=== PATIENT | male | born 1955 | race Two or more races ===

== ENCOUNTER → 2016-12-30 | Outpatient (CLI) | payer OTHER ==
[~2016-12-30] MED LIST: CARI350T14 PO; HYDR-3138 PO; METF500T4 PO
[2016-12-30 14:40] LABS: ASPARTATE AMINO TRANSFERASE 25 U/L (15-37); BLOOD UREA NITROGEN 12 mg/dL (7-18)
== END | disposition home or self-care (01) ==
LOC: STAR 13:14
PROVIDERS: ATTEND Neurological Surgery
DX: Z01.818 Encounter for other preprocedural examination (principal); M50.00 Cervical disc disorder with myelopathy, unspecified cervical region
CPT/HCPCS: 36415; 71020; 80053; 85025; 85610; 85730; 93005

== ENCOUNTER 2017-01-05 06:38 | Inpatient (IN) | payer OTHER ==
[2016-12-30 14:25] VITALS: BP 135/78
[~2017-01-05] VITALS: Ht 172.7 cm; Wt 92.4 kg
[2017-01-05] MEDS ORDERED: LACTATED RINGERS 1,000 ML IV SCH (08:41)
[2017-01-05] MEDS ORDERED: LISI-170 PO (08:44)
[2017-01-05] MEDS ORDERED: LIDOCAINE 1%, 2ML SQ PRN (09:00)
[2017-01-05] MEDS ORDERED: LIDOCAINE 1%, 2ML ONE (09:05)
[2017-01-05] MEDS ORDERED: FENTANYL PF 250 MCG/5ML ONE (10:54)
[2017-01-05] MEDS ORDERED: MIDAZOLAM 1 MG/ML, 2ML ONE (10:55)
[2017-01-05] MEDS ORDERED: ROCURONIUM 10 MG/ML ONE (12:39)
[2017-01-05] MEDS ORDERED: CEFAZOLIN 1,000 MG ONE (12:39)
[2017-01-05] MEDS ORDERED: PROPOFOL 10 MG/ML, 50ML ONE (12:39)
[2017-01-05] MEDS ORDERED: SUCCINYLCHOLINE 20 MG/ML, 10ML ONE (12:39)
[2017-01-05] MEDS ORDERED: PROPOFOL 10 MG/ML, 20ML ONE (12:39)
[2017-01-05] MEDS ORDERED: THROMBIN 20,000 UNIT VIAL TP ONE (13:30)
[2017-01-05] MEDS ORDERED: BACITRACIN 50,000 UNIT ONE (13:30)
[2017-01-05] MEDS ORDERED: BUPIVACAINE/PF-EPI 0.5% 1:200K ONE (13:30)
[2017-01-05] MEDS ORDERED: MEPERIDINE/PF 25MG/0.5ML IVPush PRN (14:00)
[2017-01-05] MEDS ORDERED: ACETAMINOPHEN 325 MG TABLET PO PRN (14:00)
[2017-01-05] MEDS ORDERED: OXYcodone 5 MG/5 ML ORAL.SOL UDC PO PRN (14:00)
[2017-01-05] MEDS ORDERED: LABETALOL 5MG/ML, 20ML IV PRN (14:00)
[2017-01-05] MEDS ORDERED: PROMETHAZINE 25 MG/ML, 1ML IV PRN (14:00)
[2017-01-05] MEDS ORDERED: ONDANSETRON 2MG/ML, 2ML IVPush PRN (14:00)
[2017-01-05] MEDS ORDERED: hydrALAzine 20 MG/ML, 1ML IV PRN (14:00)
[2017-01-05] MEDS ORDERED: METOCLOPRAMIDE 5 MG/ML, 2ML IV PRN (14:00)
[2017-01-05] MEDS ORDERED: FENTANYL PF 100 MCG/2ML ONE ×2 (16:46→17:08)
[2017-01-05] MEDS ORDERED: OXYcodone 5 MG/5 ML ORAL.SOL UDC ONE (16:46)
[2017-01-05] MEDS ORDERED: MEPERIDINE/PF 25MG/0.5ML ONE (16:46)
[2017-01-05] MEDS: FENTANYL PF 100 MCG/2ML IV PRN ×3 (16:48→17:12)
[2017-01-05] MEDS ORDERED: HYDROmorphone 2 MG/ML, 1ML ONE (17:08)
[2017-01-05] MEDS: HYDROmorphone 1 MG/ML, 1ML IV PRN ×2 (17:11→17:23)
[2017-01-05] MEDS ORDERED: DIPHENHYDRAMINE 50 MG/ML, 1ML IM PRN (19:30)
[2017-01-05] MEDS ORDERED: BISACODYL 10 MG SUPP PR PRN (19:30)
[2017-01-05] MEDS ORDERED: PROMETHAZINE 25 MG/ML, 1ML IM PRN (19:30)
[2017-01-05] MEDS ORDERED: HYDROcodone/APAP 5/325 TABLET PO PRN (19:30)
[2017-01-05] MEDS ORDERED: MAGNESIUM HYDROXIDE 8%, 30ML UDC PO PRN (19:30)
[2017-01-05] MEDS ORDERED: ONDANSETRON 2MG/ML, 2ML IV PRN (19:30)
[2017-01-05] MEDS ORDERED: DIPHENHYDRAMINE 50 MG CAPSULE PO PRN (19:30)
[2017-01-05] MEDS ORDERED: METHOCARBAMOL 1,000 MG in DEXTROSE 5% 100 ML IV ONE (20:00)
[2017-01-05 20:19] VITALS: BP 156/95
[2017-01-05] MEDS: HYDROcodone/APAP 10/325 MG TABLET PO PRN (21:03)
[2017-01-05] MEDS: SENNA/DOCUSATE TABLET PO SCH (21:04)
[2017-01-05] MEDS: CALCIUM CARBONATE 500 MG TAB.CHEW PO SCH (21:04)
[2017-01-05] MEDS: NS + 20MEQ KCL 1,000 ML IV SCH (21:05)
[2017-01-05] MEDS: INSULIN REGULAR 100 UNITS/ML, 3ML VIAL SQ-INSULIN SCH (21:30)
[2017-01-05] MEDS: CEFAZOLIN PMX 1GM/50ML 50 ML IVPB SCH (22:44)
[2017-01-06 00:03] VITALS: BP 138/83
[2017-01-06] MEDS: morphine SULFATE 10 MG/ML, 1ML IV PRN ×3 (00:03→11:09)
[2017-01-06] MEDS: HYDROcodone/APAP 10/325 MG TABLET PO PRN ×3 (02:39→13:49)
[2017-01-06 03:37] VITALS: BP 125/75
[2017-01-06] MEDS: METHOCARBAMOL 750 MG in DEXTROSE 5% 100 ML IV SCH ×2 (05:53→12:12)
[2017-01-06] MEDS: INSULIN REGULAR 100 UNITS/ML, 3ML VIAL SQ-INSULIN SCH ×2 (06:09→11:00)
[2017-01-06] MEDS: CEFAZOLIN PMX 1GM/50ML 50 ML IVPB SCH (06:27)
[2017-01-06 06:54] VITALS: BP 133/81
[2017-01-06] MEDS: NS + 20MEQ KCL 1,000 ML IV SCH (07:33)
[2017-01-06] MEDS ORDERED: DEXAMETHASONE 4 MG/ML, 1ML IV ONE (08:00)
[2017-01-06] MEDS: SENNA/DOCUSATE TABLET PO SCH (08:29)
[2017-01-06] MEDS: CALCIUM CARBONATE 500 MG TAB.CHEW PO SCH (08:29)
[2017-01-06] MEDS ORDERED: LISINOPRIL 20 MG TABLET PO SCH (09:00)
[2017-01-06] MEDS ORDERED: CHOLECALCIFEROL 1,000 UNIT TABLET PO SCH (09:00)
[2017-01-06] MEDS ORDERED: metFORMIN 500 MG TABLET PO SCH (09:00)
[2017-01-06 14:55] VITALS: BP 158/81
[2017-01-06] MEDS ORDERED: CARI350T PO (15:53)
[2017-01-06] MEDS ORDERED: SENN1TAB7 PO (15:55)
[2017-01-06] MEDS ORDERED: CALC400T6 PO (15:56)
[2017-01-06] MEDS ORDERED: CHOL10003 PO (15:57)
[2017-01-06] MEDS ORDERED: METH2TAB PO (15:58)
[2017-01-08] MEDS ORDERED: METHOCARBAMOL 750 MG TABLET PO SCH (08:00)
== END 2017-01-06 16:20 | disposition home or self-care (01) | DRG 472 ==
LOC: ORIP 07:36 → 4NOR 18:25 → DCLOUNGE 01-06 15:41
PROVIDERS: ADMIT Neurological Surgery; ATTEND Neurological Surgery
PROC: 0RB30ZZ Excision of Cervical Vertebral Disc, Open Approach (ICD-10-PCS; 2017-01-05)
PROC: 0RG20A0 Fusion of 2 or more Cervical Vertebral Joints with Interbody Fusion Device, Anterior Approach, Anterior Column, Open Approach (ICD-10-PCS; principal; 2017-01-05 12:30)
DX: M48.02 Spinal stenosis, cervical region (principal); G95.89 Other specified diseases of spinal cord; M43.22 Fusion of spine, cervical region; M40.292 Other kyphosis, cervical region; W19.XXXA Unspecified fall, initial encounter; Y99.0 Civilian activity done for income or pay; Y92.89 Other specified places as the place of occurrence of the external cause; Y93.89 Activity, other specified
CPT/HCPCS: 36415; 72040; 82962; 83036; C1713; J0690; J1100; J1170; J1815; J2175; J2250; J2704; J3010; J3480; J3490; C1778; J0330; J2270; J2800; J7120

== ENCOUNTER 2018-06-19 10:45 | Day surgery (SDC) | payer MEDICAID ==
[~2018-06-19] VITALS: Ht 172.7 cm; Wt 91.9 kg
[~2018-06-19 10:45] MED LIST changes: +BUPIVACAINE/PF 0.5% ONE; +CALC400T6 PO; +CARI350T PO; +CHOL10003 PO; -HYDR-3138 PO; +HYDR-3237 PO; +LISI-170 PO; +METF500T17 PO; -METF500T4 PO; +METH2TAB PO; +SENN1TAB8 PO
[2018-06-19] MEDS ORDERED: LACTATED RINGERS 1,000 ML IV SCH (11:06)
[2018-06-19 11:14] VITALS: BP 164/101
[2018-06-19] MEDS ORDERED: PLEASE ENTER HEIGHT AND WEIGHT MC SCH (11:30)
[2018-06-19 12:05] LABS: ALANINE AMINOTRANSFERASE 32 U/L (12-78); ALBUMIN 4.1 g/dL (3.4-5.0); ANION GAP 9 mmol/L (5-15); CALCIUM 9.2 mg/dL (8.5-10.1); CHLORIDE 111 mmol/L (98-107); CREATININE 0.89 mg/dL (0.7-1.3)
[2018-06-19 12:07] LABS: ALKALINE PHOSPHATASE 77 U/L (45-117); BILIRUBIN,TOTAL 0.4 mg/dL (0.2-1.0); TOTAL PROTEIN 7.7 g/dL (6.4-8.2)
[2018-06-19] MEDS ORDERED: BACITRACIN OINT 500U/GM, 15 GM ONE (12:10)
[2018-06-19] MEDS ORDERED: BUPIVACAINE/PF 0.5% ONE (12:10)
[2018-06-19] MEDS ORDERED: MIDAZOLAM 1 MG/ML, 2ML ONE (12:12)
[2018-06-19] MEDS ORDERED: FENTANYL PF 100 MCG/2ML ONE ×3 (12:12→13:29)
[2018-06-19] MEDS ORDERED: ONDANSETRON 2MG/ML, 2ML ONE (12:22)
[2018-06-19] MEDS ORDERED: DEXAMETHASONE 4 MG/ML, 1ML ONE (12:22)
[2018-06-19] MEDS ORDERED: SUCCINYLCHOLINE 20 MG/ML, 10ML ONE (12:22)
[2018-06-19] MEDS ORDERED: PROPOFOL 10 MG/ML, 20ML ONE (12:22)
[2018-06-19] MEDS ORDERED: CEFAZOLIN 1,000 MG ONE (12:22)
[2018-06-19] MEDS ORDERED: ENALAPRILAT 1.25 MG/ML, 2ML IV PRN (13:00)
[2018-06-19] MEDS ORDERED: PROCHLORPERAZINE 5 MG/ML, 2ML IM PRN (13:00)
[2018-06-19] MEDS ORDERED: hydrALAzine 20 MG/ML, 1ML IV PRN (13:00)
[2018-06-19] MEDS ORDERED: ACETAMINOPHEN 325 MG TABLET PO PRN (13:00)
[2018-06-19] MEDS ORDERED: OXYcodone 5 MG/5 ML ORAL.SOL UDC PO PRN (13:00)
[2018-06-19] MEDS ORDERED: LABETALOL 5MG/ML, 20ML IV PRN (13:00)
[2018-06-19] MEDS ORDERED: ONDANSETRON 2MG/ML, 2ML IV PRN (13:00)
[2018-06-19] MEDS ORDERED: ONDANSETRON ODT 8 MG PO PRN (13:00)
[2018-06-19] MEDS ORDERED: ACETAMINOPHEN 325 MG TABLET ONE (13:28)
[2018-06-19] MEDS ORDERED: ACETAMINOPHEN 650 MG/20.3 ML UDC ONE (13:28)
[2018-06-19] MEDS ORDERED: OXYcodone 5 MG/5 ML ORAL.SOL UDC ONE (13:28)
[2018-06-19] MEDS ORDERED: OXYcodone/APAP 5/325MG TABLET PO PRN (13:30)
[2018-06-19] MEDS: FENTANYL PF 100 MCG/2ML IV PRN ×3 (13:36→14:01)
[2018-06-19] MEDS ORDERED: MORPHINE SULFATE 4 MG/ML, 1ML ONE ×2 (14:04→14:14)
[2018-06-19] MEDS: MORPHINE SULFATE 4 MG/ML, 1ML IVPush PRN ×3 (14:06→14:18)
[2018-06-19] MEDS ORDERED: LISINOPRIL 20 MG TABLET PO ONE (15:30)
== END 2018-06-19 16:35 | disposition home or self-care (01) ==
LOC: OUT 10:45
PROVIDERS: ATTEND Urology
DX: N47.1 Phimosis (principal); I10 Essential (primary) hypertension; E11.9 Type 2 diabetes mellitus without complications
CPT/HCPCS: 54161; 80053; 82962; 93005; J0330; J0690; J1100; J2250; J2405; J2704; J3010; J3490